=== PATIENT | female | born 1955 | race Caucasian/White ===

== ENCOUNTER → 2016-08-15 | Outpatient (CLI) | payer OTHER ==
--- NOTE | 2016-08-15 09:43 | US ---
Thyroid Ultrasound History: Prior thyroidectomy. Thyroid cancer. Comparison: Thyroid ultrasound April 09, 2015. Technique: Longitudinal and transverse ultrasound imaging of the thyroid gland. Findings: The thyroid is surgically absent. The thyroidectomy bed is normal. There is a mildly promi nent 2.0 x 1.2 x 0.7 cm left cervical lymph node at the lateral aspect of the internal jugular vein, likely level 3, with a preserved fatty hilum and possible mild eccentric cortical thickening. Impression: Nonspecific mildly prominent left cervical lymph node not visible on the prior study. Th is could be reactive or related to early metastasis. Findings discussed with Myla Snow's medical safety director, today at 0937 hours.
== END ==
LOC: BMCIMAGING 08:45
PROVIDERS: ATTEND Internal Medicine Endocrinology, Diabetes & Metabolism
DX: R59.0 Localized enlarged lymph nodes (principal); C73 Malignant neoplasm of thyroid gland
CPT/HCPCS: 76536-PO

== ENCOUNTER → 2017-01-17 | Outpatient (CLI) | payer OTHER | LOC: BMCIMAGING 07:25 | PROVIDERS: ATTEND Internal Medicine Endocrinology, Diabetes & Metabolism | DX: Z08 Encounter for follow-up examination after completed treatment for malignant neoplasm (principal); Z85.850 Personal history of malignant neoplasm of thyroid | CPT/HCPCS: 76536-PO; G0202 ==

== ENCOUNTER → 2018-03-28 | Outpatient (CLI) | payer OTHER | LOC: BMCIMAGING 13:30 | PROVIDERS: ATTEND Internal Medicine Endocrinology, Diabetes & Metabolism | DX: R59.9 Enlarged lymph nodes, unspecified (principal); Z85.850 Personal history of malignant neoplasm of thyroid; Z90.89 Acquired absence of other organs | CPT/HCPCS: 76536-PO ==